=== PATIENT | female | born 1975 | race Two or more races ===

== ENCOUNTER 2023-09-28 00:42 | Inpatient (IN) | payer OTHER ==
[~2023-09-28] VITALS: Ht 175.3 cm; Wt 77.6 kg
[2023-09-28 03:27] LABS: PH,URINE 6.5 (5.0-8.0); URINE APPEARANCE Clear; URINE BILIRRUBIN Negative (NEGATIVE); URINE BLOOD Moderate; URINE COLOR Yellow; URINE GLUCOSE Negative (NEGATIVE); URINE LEUKOCYTE Trace; URINE NITRATE Negative; URINE PROTEIN Negative (NEGATIVE); URINE UROBILINOGEN 0.2 E.U./dl
[2023-09-28 03:28] LABS: HEMATOCRIT 35.7 % (36.0-45.00); HEMOGLOBIN 12.2 g/dL (12.0-15.00); MEAN CELL VOLUME 90.4 fL (80.00-100.00); MEAN CORPUSCULAR HEMOGLOBIN 30.9 pg (27.00-32.0); MEAN CORPUSCULAR HGB CONC 34.2 g/dl (32.0-36.0); PLATELET COUNT 369 K/uL (150-450); RED BLOOD COUNT 3.95 M/uL (4.00-6.00); RED CELL DISTRIBUTION WIDTH 13.2 % (11.5-14.5)
[2023-09-28 03:30] LABS: URINE BACTERIA 337.6 uL (0.0-1933); URINE EPITHELIAL CELLS 36.9 uL (0.0-38.8); URINE RBC 121.7 uL (0.0-20.8); URINE WBC 11.2 uL (0.0-23.2)
[2023-09-28 03:49] LABS: INR 1.04; PARTIAL THROMBOPLASTIN TIME 34.5 SECONDS (22.0-34.0); PROTHROMBIN TIME 10.9 SECONDS (9.0-11.5)
[2023-09-28 03:50] LABS: CALCIUM 9.1 mg/dL (8.5-10.1); CREATININE SERUM 0.73 mg/dL (0.55-1.02); GFR 84.73; POTASSIUM 3.93 mEq/L (3.5-5.1)
[2023-09-30 14:26] LABS: HEMATOCRIT 35.1 % (36.0-45.00); HEMOGLOBIN 12.1 g/dL (12.0-15.00); MEAN CELL VOLUME 91.3 fL (80.00-100.00); MEAN CORPUSCULAR HEMOGLOBIN 31.4 pg (27.00-32.0); MEAN CORPUSCULAR HGB CONC 34.4 g/dl (32.0-36.0); PLATELET COUNT 366 K/uL (150-450); RED BLOOD COUNT 3.85 M/uL (4.00-6.00); RED CELL DISTRIBUTION WIDTH 12.7 % (11.5-14.5)
== END 2023-10-01 11:08 | disposition home or self-care (01) | DRG 392 ==
LOC: ER 00:43 → SEC-K 08:24 → MEDI 08:24
PROVIDERS: General Practice; Internal Medicine; ADMIT Internal Medicine; ATTEND Internal Medicine
PROC: BW21YZZ Computerized Tomography (CT Scan) of Abdomen and Pelvis using Other Contrast (ICD-10-PCS; principal; 2023-09-28)
DX: K57.32 Diverticulitis of large intestine without perforation or abscess without bleeding (principal); R10.32 Left lower quadrant pain